=== PATIENT | male | born 1985 | race Hispanic/Latino ===

== ENCOUNTER 2022-12-20 21:38 | Emergency (ER) | payer SELFPAY ==
[~2022-12-20] VITALS: Ht 167.6 cm; Wt 97.5 kg
[2022-12-20] MEDS ORDERED: SODIUM CHLORIDE 0.9% 1000ML 1,000 ML IV ONE (22:00)
[2022-12-20 22:27] LABS: BASOPHILS # (AUTO) 0.1 (0.0-0.1); BASOPHILS % 0.7 % (0.0-1.0); EOSINOPHILS # (AUTO) 0.2 (0.0-0.4); EOSINOPHILS % 1.7 % (0.0-6.0); HEMATOCRIT 41.5 % (38.2-49.6); LYMPHOCYTES # (AUTO) 2.7 (1.0-3.2); MEAN CORPUSCULAR HEMOGLOBIN 29.5 pg (28-32); MEAN CORPUSCULAR HGB CONC 33.7 g/dL (31-35); MEAN CORPUSCULAR VOLUME 87.6 fL (81-99); MONOCYTES # (AUTO) 0.7 (0.2-0.8); MONOCYTES % 8.1 % (4.4-11.3); NEUTROPHILS % 58.3 % (38.7-80.0); PLATELET COUNT 228 x10e3/uL (140-360); RED BLOOD COUNT 4.74 x10e6/uL (4.3-5.7); RED CELL DISTRIBUTION WIDTH 12.6 % (11.7-14.4)
[2022-12-20 22:50] LABS: ALBUMIN 3.6 g/dL (3.5-5.0); ALBUMIN/GLOBULIN RATIO 0.9 (0.8-2.0); ANION GAP 14.5 mmol/L (8-16); CALCIUM 9.1 mg/dL (8.4-10.2); CREATININE, SERUM 0.94 mg/dL (0.72-1.25); POTASSIUM 3.5 mmol/L (3.5-5.1)
[2022-12-20] MEDS ORDERED: METFORMIN HCL500 MG PO (23:51)
[2022-12-20 23:53] VITALS: BP 132/90; PULSE 97; RESP 19; TEMP 98.9; O2SAT 98
== END 2022-12-21 00:03 | disposition home or self-care (01) ==
LOC: ER 21:49
DX: E11.65 Type 2 diabetes mellitus with hyperglycemia (principal); Z91.148 Patient's other noncompliance with medication regimen for other reason; Z87.442 Personal history of urinary calculi
CPT/HCPCS: 36415; 80053; 82948; 85025; 99284; J7030

== ENCOUNTER 2024-06-05 18:23 | Emergency (ER) | payer SELFPAY ==
[~2024-06-05] VITALS: Ht 167.6 cm; Wt 104.3 kg
[~2024-06-05 18:23] MED LIST: METFORMIN HCL500 MG PO
[2024-06-05 18:43] VITALS: TEMP 98.8
[2024-06-05] MEDS: KETOROLAC TROMETHAMINE 30 MG/ML VIAL IV STA (19:59)
[2024-06-05 20:02] LABS: HEMATOCRIT 42.6 % (38.2-49.6); HEMOGLOBIN 13.9 g/dL (14.0-18.0); MEAN CORPUSCULAR HGB CONC 32.6 g/dL (31-35); PLATELET COUNT 246 x10e3/uL (140-360); RED BLOOD COUNT 4.63 x10e6/uL (4.3-5.7); RED CELL DISTRIBUTION WIDTH 12.5 % (11.7-14.4); WHITE BLOOD COUNT 8.68 x10e3/uL (4.8-10.8)
[2024-06-05 20:15] LABS: ANION GAP 14.9 mmol/L (8-16); CALCIUM 9.9 mg/dL (8.4-10.2); CREATININE, SERUM 0.87 mg/dL (0.72-1.25); POTASSIUM 3.9 mmol/L (3.5-5.1)
[2024-06-05 20:19] VITALS: PULSE 87; RESP 18
[2024-06-05] MEDS ORDERED: IOPAMIDOL 370 MG/ML 100 ML INFUS..BTL INJ ONE (20:28)
[2024-06-05 20:33] LABS: EOSINOPHILS % (MANUAL) 1 % (0-7); LYMPHOCYTES % (MANUAL) 29 % (19-48); MONOCYTES % (MANUAL) 4 % (3.4-9.0); NEUTROPHILS % (MANUAL) 63 % (40-74); REACTIVE LYMPHOCYTES 3
[2024-06-05 20:34] LABS: PLATELET ESTIMATE ADEQUATE; PLATELET MORPHOLOGY COMMENT NORMAL; RBC MORPHOLOGY COMMENT NORMAL
[2024-06-05] MEDS ORDERED: AMOX TR-K CLV1 EAC2 PO (21:48)
[2024-06-05 21:56] VITALS: BP 117/68; PULSE 79; RESP 18; TEMP 97.3; O2SAT 100
== END 2024-06-05 21:57 | disposition home or self-care (01) ==
LOC: ER 19:45
DX: H92.02 Otalgia, left ear (principal); J02.0 Streptococcal pharyngitis; E11.65 Type 2 diabetes mellitus with hyperglycemia; Z87.442 Personal history of urinary calculi
CPT/HCPCS: 36415; 70491; 80048; 83518; 85007; 85027; 99284; J1885; J2543; Q9967